=== PATIENT | male | born 1945 | race Caucasian/White ===

== ENCOUNTER 2019-03-01 06:13 | Emergency (ER) | payer OTHER ==
[~2019-03-01] VITALS: Ht 167.6 cm; Wt 108.9 kg
[2019-03-01 06:41] VITALS: Ht 167.6 cm; Wt 108.9 kg
[2019-03-01 09:17] VITALS: BP 142/87
== END 2019-03-01 09:17 | disposition home or self-care (01) ==
LOC: ED 06:13
DX: S20.211A Contusion of right front wall of thorax, initial encounter (principal); E11.9 Type 2 diabetes mellitus without complications; I10 Essential (primary) hypertension; E78.00 Pure hypercholesterolemia, unspecified; Z88.6 Allergy status to analgesic agent; Z90.89 Acquired absence of other organs; Z98.890 Other specified postprocedural states; X58.XXXA Exposure to other specified factors, initial encounter; Y93.89 Activity, other specified; Y92.89 Other specified places as the place of occurrence of the external cause; Y99.8 Other external cause status
CPT/HCPCS: J2270; Q0092; Q0162

== ENCOUNTER 2019-07-30 00:45 | Observation (INO) | payer OTHER ==
[~2019-07-30] VITALS: Ht 167.6 cm; Wt 99.0 kg
[2019-07-30 00:49] VITALS: Ht 167.6 cm; Wt 99.0 kg
[2019-07-30 01:42] LABS: BASOPHIL % 0.4 % (0-2); PLATELET COUNT 295 x10^3mcL (130-400); RED CELL DISTRIBUTION WIDTH 13.6 % (11.5-14.5)
[2019-07-30 01:49] LABS: CALCIUM 8.8 mg/dL (8.5-10.1); CHLORIDE SERUM 105 mmol/L (98-107); CREATININE SERUM 1.5 mg/dL (0.7-1.3); GLUCOSE SERUM 204 mg/dL (74-106); POTASSIUM SERUM 4.4 mmol/L (3.5-5.1); SODIUM SERUM 141 mmol/L (136-145)
[2019-07-30 01:54] LABS: ALBUMIN 3.4 g/dL (3.4-5.0); ALKALINE PHOSPHATASE 72 U/L (46-116); ALT/SGPT 10 U/L (16-63); AST/SGOT 8 U/L (15-37); BILIRUBIN TOTAL 0.25 mg/dL (0.20-1.00); MAGNESIUM 1.3 mg/dL (1.8-2.4); TOTAL PROTEIN, SERUM 6.8 g/dL (6.4-8.2)
[2019-07-30] MEDS ORDERED: ADALAT CC30 MG (04:36)
[2019-07-30] MEDS ORDERED: ZESTRIL5 MG (04:36)
[2019-07-30] MEDS ORDERED: FORTAMET500 M1 (04:37)
[2019-07-30 05:23] VITALS: BP 152/80
[2019-07-30 08:45] VITALS: BP 145/96
[2019-07-30 13:42] VITALS: BP 189/97
[2019-07-30 17:17] VITALS: BP 162/83
[2019-07-30 17:27] VITALS: BP 162/83
== END 2019-07-30 17:45 | disposition short-term general hospital (02) ==
LOC: ED 00:45 → EDBEDREQ 04:07 → DU 04:07
PROVIDERS: Emergency Medicine; ADMIT Internal Medicine
DX: I20.9 Angina pectoris, unspecified (principal); I12.9 Hypertensive chronic kidney disease with stage 1 through stage 4 chronic kidney disease, or unspecified chronic kidney disease; N18.9 Chronic kidney disease, unspecified; E78.5 Hyperlipidemia, unspecified; E11.22 Type 2 diabetes mellitus with diabetic chronic kidney disease; M19.90 Unspecified osteoarthritis, unspecified site; I21.4 Non-ST elevation (NSTEMI) myocardial infarction; E83.42 Hypomagnesemia; E66.9 Obesity, unspecified
CPT/HCPCS: 83880; G0378; J1650; J2785; J7613; J7620